=== PATIENT | female | born 1960 | race Asian ===

== ENCOUNTER 2019-10-11 16:34 | Emergency (ER) | payer MEDICARE ==
[~2019-10-11] VITALS: Ht 160 cm; Wt 59.4 kg
--- NOTE | 2019-10-11 16:34 | NUR ---
Patient JOSÉ ANTONIO VANN from [facility], transferred to bed 1. RN evaluating the patient at bedside.
[2019-10-11 16:39] VITALS: BP 137/90
--- NOTE | 2019-10-11 17:05 | NUR ---
BIB [facility] FROM [facility] PT IS MANDARIN SPEAKING ONLY, ATTEMPTED TO CALL SON, NO ANSWER, VOICEMAIL LEFT. PT HAS HAD LOSS OF APPETITE X2 DAYS PER [facility]. PATIENT BASELINE GCS: 14, CURRENT GCS: 14. LUNG SOUNDS CLEAR IN BILAT LOBES. RESP EVEN AND UNLABORED. BOWEL SOUNDS NORMOACTIVE IN ALL QUADRANTS. ABD SOFT/ NON TENDER. SKIN IN TACT. CAP REFILL <3. NO FEVER AT THIS TIME. PT SKIN IS COOL, DRY, NONDIAPHORETIC. PERRLA, 3MM. MUSCOUS MEMBRANES PINK AND MOIST. PMH IS UNKNOWN AT THIS TIME NKA
--- NOTE | 2019-10-11 17:11 | NUR ---
Patient taken to CT scan via gurney by [employer].
[2019-10-11 17:16] LABS: BASOPHILS # (AUTO) 0.1 K/uL (0.00-0.22); BASOPHILS % (AUTO) 1.1 % (0.0-2.0); EOSINOPHILS # (AUTO) 0.3 K/uL (0-0.4); EOSINOPHILS % (AUTO) 4.6 % (0.0-4.0); HEMATOCRIT 41.1 % (36-48); HEMOGLOBIN 13.4 g/dL (12.0-16.0); LYMPHOCYTES # (AUTO) 1.9 K/uL (2.5-16.5); LYMPHOCYTES % (AUTO) 26.4 % (20.5-51.1); MEAN CORPUSCULAR HEMOGLOBIN 30 pg (27-31); MEAN CORPUSCULAR HGB CONC 33 g/dL (33-37); MEAN CORPUSCULAR VOLUME 92.6 fL (80-94); MONOCYTES # (AUTO) 0.6 K/uL (0.8-1.0); MONOCYTES % (AUTO) 8.8 % (1.7-9.3); NEUTROPHILS # (AUTO) 4.3 K/uL (1.8-7.7); NEUTROPHILS % (AUTO) 59.1 % (42.2-75.2); PLATELET COUNT (AUTO) 347 K/uL (140-450); RED BLOOD CELL COUNT(AUTO) 4.44 MIL/uL (4.20-5.40); RED CELL DISTRIBUTION WIDTH 13.4 % (11.6-13.7); WHITE BLOOD COUNT (AUTO) 7.2 K/uL (4.8-10.8)
[2019-10-11 17:33] LABS: ALBUMIN 3.9 g/dL (3.4-5.0); ANION GAP 10.8 (8-16); CARBON DIOXIDE 29.4 mmol/L (21-32); CREATININE 0.7 mg/dL (0.6-1.3); POTASSIUM 4.2 mmol/L (3.5-5.1); TOTAL BILIRUBIN 0.2 mg/dL (0.0-1.0)
[2019-10-11] MEDS ORDERED: LORazepam 2 MG/ML VIAL IM ONE (18:45)
--- NOTE | 2019-10-11 20:04 | NUR ---
PT RESTING AT BEDSIDE. PLAYING WITH SHEETS. RESP EVEN AND UNLABORED.
--- NOTE | 2019-10-11 20:15 | NUR ---
REPORT OF PATIENT STATUS AND [facility]ULTS [facility]
[2019-10-11 22:27] VITALS: BP 116/87
--- NOTE | 2019-10-11 22:28 | NUR ---
Patient discharged with v/s stable. Written and verbal after care instructions given and explained. Ambulatory with steady gait to wheelchair. ID band removed. Patient advised to follow up with PMD. Rx of LACTULOSE given. Patient educated on indication of medication including possible reaction and side effects. Opportunity to ask questions provided patient unable to state understanding, reinforcement needed. Report given to [facility].
== END 2019-10-11 22:27 ==
LOC: MED 16:34
DX: K59.00 Constipation, unspecified (principal); F03.90 Unspecified dementia, unspecified severity, without behavioral disturbance, psychotic disturbance, mood disturbance, and anxiety; Z98.890 Other specified postprocedural states
CPT/HCPCS: 36415; 71045; 74176; 80053; 83690; 84484; 85025; 96372; 99284; J2060; Q0092